=== PATIENT | male | born 1995 | race Caucasian/White ===

== ENCOUNTER 2018-05-16 19:18 | Emergency (ER) | payer OTHER ==
[~2018-05-16] VITALS: Ht 170.2 cm; Wt 95.5 kg
[2018-05-16 19:38] VITALS: Ht 170.2 cm; Wt 95.5 kg
[2018-05-16] MEDS ORDERED: TORADOL10 MG PO (21:19)
[2018-05-16 21:44] VITALS: BP 132/76
== END 2018-05-16 21:45 | disposition home or self-care (01) ==
LOC: D.ER 19:18
DX: S40.012A Contusion of left shoulder, initial encounter (principal); W19.XXXA Unspecified fall, initial encounter; Y93.89 Activity, other specified; Y92.019 Unspecified place in single-family (private) house as the place of occurrence of the external cause